=== PATIENT | female | born 1950 | race Caucasian/White ===

== ENCOUNTER 2019-02-10 09:00 | Emergency (ER) | payer BC, OTHER ==
--- NOTE | 2019-02-10 09:13 | PDOC ---
History of Present Illness - General Chief Complaint: Chest Pain Stated Complaint: CHEST PAIN - History of Present Illness Initial Comments: The pt is a 68F w/ a history of HLD, thrombocytopenia, cervical cancer s/p HYS who presents for evaluation of chest pain. The pain started at approximately 0530 this morning, was substernal non-radiating chest pressure, lasted for 10min , and was not associated with any symptoms. She denies associated shortness of breath, SUMNER, vision changes, recent illness, or fever. She took tums this morning with relief of her symptoms. She reports similar episodes of pain in the past, which all occur at rest and spontaneously resolve. She is unsure if the tums helps or if her symptoms resolve spontaneously. Today she thinks the pressure was less than usual. She spoke with her PMD this AM who advised to her come in to be evaluated. In the ED she denies chest pain/pressure or any current symptoms/complaints. 02/10/19 09:35 Past History - Past Medical History Allergies/Adverse Reactions: Allergies Allergy/AdvReac Type Severity Reaction Status Date / Time Penicillins Allergy Hives Verified 02/10/19 09:13 vancomycin Allergy Verified 02/10/19 09:13 Home Medications: Ambulatory Orders Cholecalciferol (Vitamin D3) [Vitamin D-3] 1,000 unit PO DAILY tablet 09/06/15 Simvastatin 20 mg PO HS tablet 09/06/15 Ubidecarenone [Co Q-10] 100 mg PO DAILY capsule 09/06/15 Aspirin [Aspirin EC] 81 mg PO DAILY 02/10/19 Anemia: No Asthma: No Cancer: No (CERVICAL CARCINOMA IN SITU) Cardiac Disorders: No CVA: No COPD: No CHF: No Dementia: No Diabetes: No GI Disorders: No Disorders: No HTN: No Hypercholesterolemia: Yes Liver Disease: No Seizures: No Thyroid Disease: No - Surgical History Abdominal Surgery: No Appendectomy: No Cardiac Surgery: No Cholecystectomy: No Lung Surgery: No Neurologic Surgery: No Orthopedic Surgery: No - Suicide/Smoking/Psychosocial Hx Smoking History: Former smoker Have you smoked in the past 12 months: No Hx Alcohol Use: Yes (SOCIALLY) Drug/Substance Use Hx: No Substance Use Type: None Hx Substance Use Treatment: No Review of Systems - Review of Systems Comments:: GENERAL/CONSTITUTIONAL: No fever or chills. No weakness HEAD, EYES, EARS, NOSE AND THROAT: No change in vision or change in hearing. No sore throat CARDIOVASCULAR: No current chest pain or shortness of breath RESPIRATORY: Denies cough, hemoptysis GASTROINTESTINAL: No nausea, vomiting, diarrhea GENITOURINARY: No dysuria, hematuria, frequency, or change in urination MUSCULOSKELETAL: No joint or muscle swelling or pain. No neck or back pain SKIN: No rash NEUROLOGIC: No headache, lightheadedness, loss of consciousness, or change in strength/sensation HEMATOLOGIC/LYMPHATIC: No anemia, easy bleeding, or history of blood clots 02/10/19 09:12 *Physical Exam - Vital Signs Vital Signs Temp Pulse Resp BP Pulse Ox 97.8 F 73 18 132/65 100 02/10/19 09:00 02/10/19 09:00 02/10/19 09:00 02/10/19 09:00 02/10/19 09:00 02/10/19 09:46 - Physical Exam Comments: GENERAL: Awake, alert, and oriented to person/place/time, in no acute distress HEAD: No signs of trauma, normocephalic, atraumatic EYES: PERRLA, EOMI, sclera anicteric, conjunctiva clear ENT: Hearing grossly normal, nares patent, oropharynx clear without exudates. No uvular deviation. Moist mucosa LUNGS: No distress, speaks full sentences, clear to auscultation bilaterally HEART: Regular rate and rhythm, normal S1 and S2, no murmurs appreciated, peripheral pulses normal and equal bilaterally ABDOMEN: Soft, nontender, normoactive bowel sounds. No guarding, no rebound EXTREMITIES: Normal inspection, Normal range of motion, no edema. No clubbing or cyanosis NEUROLOGICAL: Cranial nerves II through XII grossly intact. Normal speech, no focal sensorimotor deficits SKIN: Warm, Dry 02/10/19 09:12 ED Treatment Course - LABORATORY CBC & Chemistry Diagram: 02/10/19 09:46 02/10/19 09:46 Medical Decision Making - Medical Decision Making The pt is a 68F w/ a history of HLD, thrombocytopenia who presents for evaluation of 10min of substernal chest pressure that has since resolved and she does not currently have. Low suspicion for ACS and PE, possibly GERD. ED Course CMP, CBC ECG CXR 02/10/19 09:47 No leukocytosis No anemia Plt 101, hx of thrombocytopenia, reported avg 80s 02/10/19 10:17 Lytes wnl No YURI Trop I neg LFTs wnl Pt continues to be asymptomatic Plan for D/C w/ PCP f/u Discharge instructions and return precautions given Patient in agreement and verbalized understanding Dispo: Home 02/10/19 10:31 *DC/Admit/Observation/Transfer Diagnosis at time of Disposition: Chest pain Qualifiers: Chest pain type: unspecified Qualified Code(s): R07.9 - Chest pain, unspecified - Discharge Dispostion Condition at time of disposition: Stable Decision to Admit order: No - Referrals Referrals: Dana Villar [Primary Care Provider] - - Patient Instructions Printed Discharge Instructions: DI for Chest Pain Additional Instructions: You were seen in the Emergency Department for evaluation of chest pain. Your labs were unremarkable. Please review the handout provided at discharge and follow up with your primary care provider. Return to the Emergency Department if you develop fevers/chills, chest pain, trouble breathing, vision changes/ headache, worsening symptoms, or any new/concerning symptoms. - Post Discharge Activity
[2019-02-10 09:26] VITALS: TEMP 97.8; BMI 25.2
--- NOTE | 2019-02-10 09:35 | PDOC ---
Attending Attestation - Resident Resident Name: James Song - ED Attending Attestation I have performed the following: I have examined & evaluated the patient, The case was reviewed & discussed with the resident, I agree w/resident's findings & plan, Exceptions are as noted - HPI HPI: 02/10/19 15:17 Reviewed Residents HPI - Physicial Exam PE: 02/10/19 15:17 Reviewed Residents PE - Medical Decision Making 02/10/19 15:19 Heart score 3 very atypical chest discomfort patient has had similar symptomatology in the past Nonischemic EKG chest x-ray within normal limits laboratory normal limits Patient has been symptom-free since arriving in the emergency department Findings, the need for follow-up and strict return instructions discussed with patient. Heart Score/ECG Review - History History: Slightly suspicious - Electrocardiogram EKG: Normal - Age Age: >/= 65 - Risk Factors Risk Factors Heart Score: Yes Hx Hypercholesterolemia Based on the list above the patient has:: 1-2 risk factors - Troponin Troponin: </= normal limit - Score Heart Score - Total: 3
[2019-02-10 10:09] LABS: BASO % 0.6 % (0-2.0); HEMATOCRIT 37.8 % (32.4-45.2); HEMOGLOBIN 12.6 GM/dl (10.7-15.3); LYMPH % 26.2 % (8-40); MCH 30.6 pg (25.7-33.7); MCHC 33.3 g/dl (32.0-36.0); MEAN CELL VOLUME 91.8 fl (80-96); MEAN PLT VOLUME 11.4 fl (7.5-11.1); MONO % 6.5 % (3.8-10.2); NEUT % 65.7 % (42.8-82.8); PLATELET COUNT 101 K/MM3 (134-434); RBC 4.12 M/mm3 (3.60-5.2); RDW 13.4 % (11.6-15.6)
[2019-02-10 10:19] LABS: ALBUMIN 4.2 g/dl (3.4-5.0); ALK PHOS 67 U/L (45-117); ANION GAP 8 MMOL/L (8-16); BILIRUBIN,TOTAL 1.4 mg/dl (0.2-1); BLOOD UREA NITROGEN 26 mg/dl (7-18); CALCIUM 9.4 mg/dl (8.5-10); CHLORIDE 106 mmol/L (98-107); CO2 24 mmol/L (21-32); CREATININE 0.7 mg/dl (0.55-1.3); GLUCOSE,RANDOM 98 mg/dl (74-106); SGOT/AST 31 U/L (15-37); SGPT/ALT 14 U/L (13-61); SODIUM 138 mmol/L (136-145); TOT PROT 6.7 g/dl (6.4-8.2)
[2019-02-10 10:57] VITALS: BP 117/56; PULSE 69
--- NOTE | 2019-02-11 10:46 | EKG ---
Test Reason : Blood Pressure : / mmHG Vent. Rate : 073 BPM Atrial Rate : 073 BPM P-R Int : 144 ms QRS Dur : 082 ms QT Int : 396 ms P-R-T Axes : 079 061 070 degrees QTc Int : 436 ms NORMAL SINUS RHYTHM NO PREVIOUS ECGS AVAILABLE Confirmed by KATHERYN BRUNO MD ([id number]) on 02/11/2019 10:45:54 AM Referred By: CHRISTELLE AQUINO Confirmed By:KATHERYN BRUNO MD
== END 2019-02-10 10:55 | disposition home or self-care (01) ==
LOC: SUPCPDRO 09:00 → FER 09:00
DX: R07.9 Chest pain, unspecified (principal); E78.5 Hyperlipidemia, unspecified; D69.6 Thrombocytopenia, unspecified; K21.9 Gastro-esophageal reflux disease without esophagitis; Z85.41 Personal history of malignant neoplasm of cervix uteri
CPT/HCPCS: 36415; 71045-TC-FY; 80053; 84484; 85025; 93005; 99285-25

== ENCOUNTER 2021-04-16 14:27 | Emergency (ER) | payer OTHER ==
[2021-04-16] MEDS ORDERED: LIDOCAINE HCL 1%, 10 MG/ML (50 mL VIAL) INF ONE (14:41)
[2021-04-16] MEDS ORDERED: DIPHTH,PERTUSS(ACELL),TET 0.5 ML DISP.SYRIN IM ONE ×2 (14:42→15:42)
[2021-04-16 14:46] VITALS: BP 125/70; PULSE 89; TEMP 98; BMI 24.0
[2021-04-16] MEDS ORDERED: ACETAMINOPHEN 500 MG TABLET (FP) PO ONE (15:39)
[2021-04-16] MEDS ORDERED: ACETAMINOPHEN 325 MG TABLET (FP) ONE (15:42)
== END 2021-04-16 16:12 | disposition home or self-care (01) ==
LOC: FER 14:27
PROC: 0HQGXZZ Repair Left Hand Skin, External Approach (ICD-10-PCS; principal; 2021-04-16)
PROC: 3E0234Z Introduction of Serum, Toxoid and Vaccine into Muscle, Percutaneous Approach (ICD-10-PCS; 2021-04-16)
DX: S61.211A Laceration without foreign body of left index finger without damage to nail, initial encounter (principal); S62.639B Displaced fracture of distal phalanx of unspecified finger, initial encounter for open fracture
CPT/HCPCS: 73140-TC-LT-FY; 90715; 99284-25